=== PATIENT | male | born 1990 | race Caucasian/White ===

== ENCOUNTER 2017-04-20 14:11 | Day surgery (SDC) | payer OTHER ==
[~2017-04-20] VITALS: Ht 177.8 cm; Wt 102.4 kg
[2017-04-20] MEDS ORDERED: NO HOME MEDICATION XX (14:20)
[2017-04-20 15:28] LABS: BASO % 0.1 % (0-2); EOS % 0.6 % (0-7); EOSINOPHIL ABSOLUTE COUNT 0.1 tho/cmm (0.0-0.7); HCT-HEMATOCRIT 45.9 % (36.0-53.5); HGB-HEMOGLOBIN 15.7 gm/dl (13.5-17.0); IMMATURE GRANULOCYTES ABSOLUTE 0.02 tho/cmm (0-0.03); IMMATURE GRANULOCYTES PERCENT 0.2 % (0-0.3); LYMPH % 13.4 % (20-45); LYMPH ABSOLUTE COUNT 1.4 tho/cmm (0.8-4.5); MCHC MEAN CORPUSCULAR HGB CONC 34.2 % (32.0-36.0); MCV (MEAN CELL VOLUME) 84.8 fl (82.0-96.0); MEAN PLATELET VOLUME 9.2 cmc (9.4-12.4); MONO % 10.8 % (0-12); MONOCYTE ABSOLUTE COUNT 1.2 tho/cmm (0.0-1.2); NEUTROPHILS % 74.9 % (40-80); PLATELET COUNT 183 tho/cmm (150-450); RED BLOOD COUNT 5.41 mil/cmm (4.40-5.70); RED CELL DISTRIBUTION WIDTH 12.1 % (12.4-16.4); WHITE BLOOD COUNT 10.7 tho/cmm (4.0-10.0)
[2017-04-20 15:46] LABS: ALB/GLOB RATIO 0.9 (0.8-2.0); ALBUMIN 3.8 g/dl (3.5-5.0); ALKALINE PHOSPHATASE 87 U/L (33-138); ALT/SGPT 53 U/L (12-78); BILIRUBIN,TOTAL 0.5 mg/dl (0.0-1.5); BLOOD UREA NITROGEN 14 mg/dl (6-24); CALCIUM 8.7 mg/dl (8.5-10.5); CARBON DIOXIDE-VENOUS 24 mmol/L (22-32); CHLORIDE 103 mmol/l (96-110); CREATININE 1.09 mg/dl (0.60-1.30); GLUCOSE 87 mg/dL (70-110); LIPASE 93 U/L (73-393); SODIUM 133 mmol/L (135-145); eGFR VALUE FOR BLACK >90 mL/Min
[2017-04-20 15:47] LABS: ANION GAP 10 mmol/L (0-20)
[2017-04-20 15:48] LABS: AST/SGOT 27 U/L (10-40)
[2017-04-20 16:29] LABS: URINE BILIRUBIN NEGATIVE (NEG); URINE BLOOD NEGATIVE (NEG); URINE GLUCOSE (UA) NEGATIVE (NEG); URINE KETONE NEGATIVE (NEG); URINE LEUKOCYTE ESTERASE NEGATIVE (NEG); URINE NITRITE NEGATIVE (NEG); URINE PROTEIN NEGATIVE (NEG)
[2017-04-20 16:30] LABS: URINE APPEARANCE CLEAR; URINE COLOR YELLOW
== END 2017-04-21 09:40 ==
LOC: EDMED → EDBD 14:11 → EDMED 14:11 → SRG 17:10 → EMR2 19:02 → SRG 19:02 → CAR1 19:02 → EMR2 19:10 → CAR1 19:10 → ORW 22:09 → CAR1 22:09 → PACU 23:47 → ORW 23:47 → PACU 23:47 → CAR1 04-21 00:12 → PACU 04-21 00:12 → CAR1 04-21 00:12
PROVIDERS: Nurse Practitioner Family
PROC: 0DTJ4ZZ Resection of Appendix, Percutaneous Endoscopic Approach (ICD-10-PCS; principal; 2017-04-20)
DX: K35.80 Unspecified acute appendicitis (principal); E66.9 Obesity, unspecified; Z98.818 Other dental procedure status
CPT/HCPCS: J1170; J1335; J2270; J7030; Q9967